=== PATIENT | male | born 1990 | race Caucasian/White ===

== ENCOUNTER 2018-09-14 21:30 | Emergency (ER) | payer BC, OTHER | END 2018-09-15 02:56 | disposition home or self-care (01) | LOC: JER 09-15 02:56 | DX: R10.31 Right lower quadrant pain (principal); S39.013A Strain of muscle, fascia and tendon of pelvis, initial encounter; X58.XXXA Exposure to other specified factors, initial encounter; Y93.89 Activity, other specified; Y92.89 Other specified places as the place of occurrence of the external cause; Y99.8 Other external cause status ==

== ENCOUNTER 2020-02-02 08:39 | Emergency (ER) | payer OTHER ==
[2020-02-02 09:02] VITALS: BP 140/89; PULSE 89; TEMP 98.4; BMI 27.1
== END 2020-02-02 09:35 | disposition home or self-care (01) ==
LOC: FER 08:39
DX: S50.01XA Contusion of right elbow, initial encounter (principal); W22.8XXA Striking against or struck by other objects, initial encounter; Z77.21 Contact with and (suspected) exposure to potentially hazardous body fluids
CPT/HCPCS: 99282-25

== ENCOUNTER 2020-04-18 05:54 | Emergency (ER) | payer OTHER ==
[2020-04-18 06:04] VITALS: BP 147/98; PULSE 85; TEMP 98.1; BMI 27.1
== END 2020-04-18 06:11 | disposition home or self-care (01) ==
LOC: FER 05:54
DX: S00.81XA Abrasion of other part of head, initial encounter (principal)
CPT/HCPCS: 99282-25

== ENCOUNTER 2020-05-22 20:42 | Emergency (ER) | payer OTHER ==
[2020-05-22 20:50] VITALS: BP 143/97; PULSE 85; TEMP 98.7; BMI 27.1
== END 2020-05-22 21:14 | disposition home or self-care (01) ==
LOC: FER 20:42
DX: S60.519A Abrasion of unspecified hand, initial encounter (principal)
CPT/HCPCS: 99282-25

== ENCOUNTER 2020-09-16 07:51 | Emergency (ER) | payer OTHER ==
[2020-09-16 08:00] VITALS: BP 131/82; PULSE 84; TEMP 98.1; BMI 26.4
[2020-09-16] MEDS ORDERED: BACITRACIN 15 GM TUBE TOPICAL OINTMENT TP ONE (08:05)
== END 2020-09-16 08:30 | disposition home or self-care (01) ==
LOC: FER 07:51
DX: S00.91XA Abrasion of unspecified part of head, initial encounter (principal)
CPT/HCPCS: 99283-25

== ENCOUNTER 2021-09-18 03:09 | Emergency (ER) | payer OTHER, BC ==
[2021-09-18 03:15] VITALS: RESP 18; BMI 26.6
[2021-09-18 03:20] VITALS: BP 123/88; PULSE 101; TEMP 98.9
== END 2021-09-18 03:25 | disposition home or self-care (01) ==
LOC: FER 03:09
DX: S01.81XA Laceration without foreign body of other part of head, initial encounter (principal); W26.8XXA Contact with other sharp object(s), not elsewhere classified, initial encounter
CPT/HCPCS: 99281-25

== ENCOUNTER 2021-10-01 06:29 | Emergency (ER) | payer BC, OTHER ==
[2021-10-01 06:36] VITALS: BP 118/81; PULSE 88; RESP 16; TEMP 98.4; BMI 26.7
== END 2021-10-01 07:41 | disposition home or self-care (01) ==
LOC: FER 06:29
DX: S53.401A Unspecified sprain of right elbow, initial encounter (principal); X50.0XXA Overexertion from strenuous movement or load, initial encounter
CPT/HCPCS: 73070-TC-RT-FY; 99283-25

== ENCOUNTER 2022-08-15 23:30 | Emergency (ER) | payer OTHER ==
[2022-08-15 23:37] VITALS: BP 130/95; PULSE 91; RESP 16; TEMP 97; BMI 26.4
[2022-08-15] MEDS ORDERED: IBUPROFEN 400 MG TABLET (FP) PO ONE ×2 (23:46→23:48)
== END 2022-08-16 00:55 | disposition home or self-care (01) ==
LOC: FER 23:30
DX: S22.32XA Fracture of one rib, left side, initial encounter for closed fracture (principal); S80.02XA Contusion of left knee, initial encounter; R07.81 Pleurodynia; M25.562 Pain in left knee; X58.XXXA Exposure to other specified factors, initial encounter; Y93.9 Activity, unspecified; Y92.9 Unspecified place or not applicable
CPT/HCPCS: 71101-TC-LT-FY; 73562-TC-LT-FY; 99284-25

== ENCOUNTER 2022-09-24 12:15 | Emergency (ER) | payer OTHER ==
[2022-09-24 12:25] VITALS: BP 139/86; PULSE 89; RESP 18; TEMP 98; BMI 26.4
[2022-09-24] MEDS ORDERED: IBUPROFEN 400 MG TABLET (FP) PO ONE ×2 (12:48→12:49)
== END 2022-09-24 13:05 | disposition home or self-care (01) ==
LOC: FER 12:15
DX: S51.011A Laceration without foreign body of right elbow, initial encounter (principal); S51.811A Laceration without foreign body of right forearm, initial encounter; W22.8XXA Striking against or struck by other objects, initial encounter; Y99.0 Civilian activity done for income or pay
CPT/HCPCS: 99283-25

== ENCOUNTER 2022-12-10 03:57 | Emergency (ER) | payer OTHER ==
[2022-12-10 04:03] VITALS: RESP 16; BMI 26.4
[2022-12-10 04:11] VITALS: BP 126/87; PULSE 75; TEMP 98.5
== END 2022-12-10 06:21 | disposition home or self-care (01) ==
LOC: FER 03:57
DX: M54.2 Cervicalgia (principal); M50.122 Cervical disc disorder at C5-C6 level with radiculopathy
CPT/HCPCS: 72125-TC; 99284-25

== ENCOUNTER 2024-05-01 15:43 | Emergency (ER) | payer OTHER ==
[2024-05-01 15:58] VITALS: BP 125/81; PULSE 66; RESP 20; TEMP 98.6; BMI 32.9
[2024-05-01] MEDS ORDERED: ACETAMINOPHEN 500 MG TABLET (FP) ONE (16:54)
[2024-05-01] MEDS: ACETAMINOPHEN 500 MG TABLET (FP) PO ONE (16:56)
== END 2024-05-01 18:23 | disposition home or self-care (01) ==
LOC: JERFT 15:43
DX: M54.6 Pain in thoracic spine (principal); R20.2 Paresthesia of skin; V89.2XXA Person injured in unspecified motor-vehicle accident, traffic, initial encounter; Y92.410 Unspecified street and highway as the place of occurrence of the external cause; Y99.0 Civilian activity done for income or pay
CPT/HCPCS: 72125-TC; 72128-TC; 99284-25; G0463